=== PATIENT | female | born 1995 | race Caucasian/White ===

== ENCOUNTER → 2020-11-18 12:45 | Outpatient (CLI) | payer BC, SELFPAY ==
[2020-11-18 14:13] LABS: Hemoglobin A1C 5.4 % (4.0-6.0)
[2020-11-18 14:24] LABS: Basophils # 0.1 K/mm3 (0-0.2); Basophils % 0.8 % (0.1-2.0); Eosinophils # 0.4 K/mm3 (0.0-0.4); Eosinophils % 4.9 % (0.1-12.0); Hematocrit 39.2 % (37.0-47.0); Lymphocytes # 2.3 K/mm3 (0.7-4.5); Lymphocytes % 29.6 % (10-50); Mean Corpuscular HGB Conc 33.3 g/dL (31.8-35.4); Mean Corpuscular Hemoglobin 29.2 pg (27.0-31.2); Mean Corpuscular Volume 87.8 fl (81-99); Mean Platelet Volume 8.4 fl (7.4-10.4); Monocytes # 0.4 K/mm3 (0.1-1.0); Monocytes % 4.8 % (1.7-9.3); Neutrophils # 4.7 K/mm3 (1.8-7.8); Neutrophils % 59.9 % (37.0-80.0); Platelet Count 202 K/mm3 (142-424); Red Blood Count 4.46 M/mm3 (4.20-5.40); Red Cell Distribution Width 13.3 % (11.5-17.5); White Blood Count 7.9 K/mm3 (4.8-10.8)
[2020-11-18 15:13] LABS: Alanine Aminotransferase 14 U/L (12-78); Albumin Level 4.5 g/dl (3.5-5.0); Alkaline Phosphatase 62 U/L (38-126); Anion Gap 12.8 mEq/L (5-15); Aspartate Amino Transferase 24 U/L (14-36); Bilirubin,Total 0.4 mg/dl (0.2-1.3); Blood Urea Nitrogen 10 mg/dl (7-17); Calcium 9.4 mg/dl (8.4-10.2); Carbon Dioxide 29 mmol/L (22.0-30.0); Chloride 102 mmol/L (98-107); Chol/HDL Ratio 3.8 (1-3.5); Cholesterol 188 mg/dl (140-200); Estimated Glomerular Filt Rate 88 ml/min (>60); GFR (African American) 107 ML/MIN (>60); Globulin 2.3 g/dL (1.3-3.2); Glucose 87 mg/dl (74-100); HDL Cholesterol 50 mg/dl (40-60); Magnesium 1.9 mg/dl (1.6-2.3); Potassium 3.8 mmoL/L (3.5-5.1); Sodium 140 mmol/L (136-145); Total Protein,Serum 6.8 g/dl (6.3-8.2); Triglycerides 92 mg/dl (30-150); VLDL Cholesterol 18 mg/dL (0-40)
[2020-11-18 15:24] LABS: Direct LDL Cholesterol 118.07 mg/dL (100-129)
[2020-11-18 15:29] LABS: 25-OH Vitamin D, Total 26.3 ng/mL (30-100)
[2020-11-18 15:33] LABS: Triiodothryronine (T3) Uptake 28 % (23.5-40.5)
[2020-11-18 15:34] LABS: Free Thyroxine Index 2.9 ug/dL (5.93-13.13); T4 (Thyroxine) 10.4 ug/dl (5.53-11.0)
[2020-11-18 15:47] LABS: Thyroid Stimulating Hormone 3.85 uIU/mL (0.465-4.68)
[2020-11-18 16:02] LABS: Vitamin B12 274 pg/mL (239-931)
[2020-11-21 14:50] LABS: Deamidated Gliadin Abs, IgA 6 units (0-19); Deamidated Gliadin Abs, IgG 2 units (0-19); Tissue Transglutaminase IgA Ab <2 U/mL (0-3); Tissue Transglutaminase IgG Ab <2 U/mL (0-5)
[2020-11-23 05:09] LABS: F001-IgE Egg White 0.27 kU/L (Class 0/I); F002-IgE Milk <0.10 kU/L (Class 0); F003-IgE Codfish <0.10 kU/L (Class 0); F004-IgE Wheat <0.10 kU/L (Class 0); F013-IgE Peanut <0.10 kU/L (Class 0); F014-IgE Soybean <0.10 kU/L (Class 0); F024-IgE Shrimp <0.10 kU/L (Class 0); F256-IgE Walnut <0.10 kU/L (Class 0); F338-IgE Scallop <0.10 kU/L (Class 0)
[2020-11-23 13:03] LABS: F010-IgE Sesame Seed <0.10 kU/L (Class 0)
== END ==
PROVIDERS: PCP Internal Medicine Adolescent Medicine; Visit Provider Internal Medicine Adolescent Medicine
DX: R10.84 Generalized abdominal pain (principal); R53.81 Other malaise; R53.83 Other fatigue; R19.7 Diarrhea, unspecified
CPT/HCPCS: 36415; 80053; 80061; 82306; 82607; 83036; 83516; 83735; 84436; 84443; 84479; 85025; 86003; 86008

== ENCOUNTER → 2022-12-21 16:05 | Outpatient (CLI) | payer OTHER, BC, SELFPAY ==
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
== END ==
PROVIDERS: PCP Internal Medicine Adolescent Medicine; Visit Provider Physician Assistant
DX: M54.2 Cervicalgia (principal); M25.512 Pain in left shoulder
CPT/HCPCS: 72050; 73030

== ENCOUNTER 2023-03-25 05:07 | Observation (INO) | payer BC, SELFPAY ==
[2023-03-25] VITALS (11 sets, daily range): BP systolic 100–138; BP diastolic 54–84; PULSE 67–120; RESP 16–20; TEMP 37–37.4; O2SAT 96–100; BMI 35.9
--- NOTE | 2023-03-25 05:18 | HMH.EDGENADL ---
Discharge Plan Disposition Patient Disposition: Admitted Referrals Follow up/Referrals: Olivier Drew MD [Primary Care Provider] - See instructions Clinical Impressions Clinical Impression: of unknown anatomic location, Abdominal pain, RLQ Instructions Patient Instructions: DI for Acute Abdominal Pain Discharge ED Provider: Florentin Teresa General Adult HPI <Florentin Teresa MD - Last Filed: 03/25/23 07:13> General Chief complaint: Abdominal Pain Stated complaint: abdominal pain Time Seen by Provider: 03/25/23 05:09 History of Present Illness HPI narrative: Patient is a 27-year-old female with no pertinent past medical history presents emergency department for evaluation of abdominal pain. History is obtained by patient at bedside. Onset was acute, occurring approximately 6 PM. Patient had generalized abdominal discomfort which has migrated to her right lower quadrant. Patient has had a couple episodes of nonbloody diarrhea. No vomiting. There is associated nausea. Symptoms are moderate to severe in intensity causing her to present here for continued evaluation. Sick contact with who has had episodes of diarrhea as well. Denies dysuria. Last menstrual cycle approximately 1 month ago. No other acute complaints at this time. Related Data Allergies Allergy/AdvReac Type Severity Reaction Status Date / Time egg whites Allergy Uncoded 03/25/23 05:20 PFSH <Florentin Teresa MD - Last Filed: 03/25/23 07:13> PFS Disclaimer: The information contained in this section may have been updated after the patient was seen, as this information can be updated by other users. Social History (Updated 03/25/23 @ 07:13 by Florentin Teresa MD) Smoking Status: Never smoker alcohol intake: never current occupational status: employed Travel in the last 8 weeks: None <Florentin Teresa MD - Last Filed: 03/25/23 07:13> ROS Obtained: Yes Systems reviewed as appropriate & no additional complaints except as documented Physical Exam <Florentin Teresa MD - Last Filed: 03/25/23 07:13> General General appearance: alert and in no apparent distress Head Head exam: atraumatic and normocephalic Eye Eye exam: Present PERRL and EOMI ENT ENT exam: Present mucous membranes moist Neck Neck exam: Present normal inspection Chest Chest inspection: Present normal inspection and symmetric chest wall rise Respiratory Respiratory exam: Present normal lung sounds bilaterally; Absent respiratory distress Cardiovascular Cardiovascular exam: Present normal rhythm and tachycardia Abdominal Exam Abdominal exam: Present soft and tenderness (Right lower quadrant) Extremities Exam Extremities exam: Present normal inspection Neurological Exam Neurological exam: Present alert Psychiatric Psychiatric exam: Present normal affect Skin Skin exam: Present warm and dry Medical Decision Making <Florentin Teresa MD - Last Filed: 03/25/23 07:13> [place] Inquiry Pt receiving controlled substance: No Vital Signs: 03/25/23 05:08 03/25/23 05:14 03/25/23 05:31 Temperature 98.7 F Temperature Source Oral Pulse Rate 67 Pulse Rate [Radial] 120 H Respiratory Rate 16 Blood Pressure 134/78 129/58 L Blood Pressure [Right Arm] 134/78 Blood Pressure Mean 89 Blood Pressure Mean [Right Arm] 96 Blood Pressure Source [Right Arm] Automatic Cuff Blood Pressure Position [Right Arm] Sitting 02 Sat by Pulse Oximetry 96 97 96 Oxygen Delivery Method Room Air 03/25/23 06:01 03/25/23 07:30 Temperature Temperature Source Pulse Rate 90 102 H Pulse Rate [Radial] Respiratory Rate Blood Pressure 138/54 L 122/84 Blood Pressure [Right Arm] Blood Pressure Mean 95 Blood Pressure Mean [Right Arm] Blood Pressure Source [Right Arm] Blood Pressure Position [Right Arm] 02 Sat by Pulse Oximetry 98 98 Oxygen Delivery Method Lab Data Lab Results 03/25/23 05:13: Urine Color Yellow, Urine Ap
[2023-03-25 05:22] LABS: Microscopic, Urine URINE MICROSCOPIC (MICROSCOPIC)
[2023-03-25 05:24] LABS: Appearance,Urine CLEAR (Clear); Bilirubin,Urine Negative (Negative); Blood, Urine Negative (Negative); Color,Urine YELLOW (Yellow); Glucose,Urine (UA) Negative (Negative); Ketones,Urine Negative (Negative); Leukocyte Esterase,Urine Negative (Negative); Nitrate,Urine Negative (Negative); PH,Urine 6.5 (5.0-8.5); Protein,Urine TRACE (Negative); Specific Gravity, Urine >= 1.030 (1.005-1.030); Urobilinogen,Urine 0.2 EU/dl (0.2)
[2023-03-25 05:34] LABS: Basophils % 0.3 % (0.1-2.0); Eosinophils # 0.1 K/mm3 (0.0-0.4); Eosinophils % 0.5 % (0.1-12.0); Hematocrit 39.6 % (37.0-47.0); Hemoglobin 12.9 g/dL (12.2-16.2); Lymphocytes # 1.3 K/mm3 (0.7-4.5); Lymphocytes % 9.6 % (10-50); Mean Corpuscular HGB Conc 32.7 g/dL (31.8-35.4); Mean Corpuscular Hemoglobin 27.6 pg (27.0-31.2); Mean Corpuscular Volume 84.5 fl (81-99); Mean Platelet Volume 8.7 fl (7.4-10.4); Monocytes # 0.6 K/mm3 (0.1-1.0); Monocytes % 4.2 % (1.7-9.3); Neutrophils # 11.3 K/mm3 (1.8-7.8); Neutrophils % 85.3 % (37.0-80.0); Platelet Count 191 K/mm3 (142-424); Red Blood Count 4.68 M/mm3 (4.20-5.40); Red Cell Distribution Width 14.3 % (11.5-17.5); White Blood Count 13.2 K/mm3 (4.8-10.8)
[2023-03-25 05:38] LABS: MANUAL DIFFERENTIAL MANUAL DIFFERENTIAL (MANUAL DIFF)
[2023-03-25 05:40] LABS: Chloride 105 mmol/L (98-107); Sodium 141 mmol/L (136-145)
[2023-03-25 05:41] LABS: Bacteria,Urine 2+ /lpf; Mucus,Urine 2+ /lpf
[2023-03-25 05:42] LABS: Blood Urea Nitrogen 11 mg/dl (7-17); Creatinine Clearance Estimated 160 mL/min (50-200); Estimated Glomerular Filt Rate 101 ml/min (>60); GFR (African American) 122 ML/MIN (>60)
[2023-03-25 05:43] LABS: Alanine Aminotransferase 26 U/L (12-78); Albumin Level 4.6 g/dl (3.5-5.0); Albumin/Globulin Ratio 1.6 (1.1-1.8); Alkaline Phosphatase 67 U/L (38-126); Aspartate Amino Transferase 27 U/L (14-36); Bilirubin,Total 0.5 mg/dl (0.2-1.3); Calcium 9.2 mg/dl (8.4-10.2); Carbon Dioxide 29 mmol/L (22.0-30.0); Globulin 2.8 g/dL (1.3-3.2); Glucose 126 mg/dl (74-100); Lipase 60 U/L (23-300); Total Protein,Serum 7.4 g/dl (6.3-8.2)
[2023-03-25 05:44] LABS: HCG Qualitative, Serum Positive (Negative)
--- NOTE | 2023-03-25 05:47 | US_ITS ---
PROCEDURE INFORMATION: Exam: US , Transvaginal Exam date and time: 03/25/2023 6:26 AM Age: 27 years old Clinical indication: Lmp or gestational age (in weeks): 5 weeks 6 days; Other: Right pelvic pain; ; Additional info: Rlq pain, pos preg LABS AND CLINICAL REPORTS: Last menstrual period start date: 02/12/2023 Gestational age (Established): 5 w 6 d Estimated due date (Established): 11/19/2023 TECHNIQUE: Imaging protocol: Real-time transvaginal obstetrical ultrasound of the maternal pelvis with image documentation. Transvaginal imaging was used for better evaluation of the fetus, adnexa, and/or cervix. COMPARISON: No relevant prior studies available. FINDINGS: Gestation: Fluid-filled sac in the endometrium. . Soft tissue density within the sac. No pole. No yolk sac. Consequently this is not a confirmed intrauterine . BIOMETRY: Gestational age (AUA): 5 w 3 d Estimated due date (AUA): 11/22/2023 Mean sac diameter: 0.8 cm. MATERNAL: Right ovary/adnexa: Right ovary measures 2.7 cm x 3.3 cm x 2.5 cm. Right ovarian volume is 12 mL. Cystic structure in the right adnexal region. Ectopic cannot be excluded. Left ovary/adnexa: Left ovary measures 2.5 cm x 2 cm x 1.4 cm. Left ovarian volume is 3.5 mL. Vasculature: Doppler flow noted in both ovaries IMPRESSION: 1. Fluid-filled sac in the endometrium. . Soft tissue density within the sac. No pole. No yolk sac. Consequently this is not a confirmed intrauterine . Recommend short term follow-up to a re-evaluate viability 2. Cystic structure in the right adnexal region. Ectopic cannot be excluded.
[2023-03-25 05:49] LABS: C-Reactive Protein 17.5 mg/L (0-4)
--- NOTE | 2023-03-25 05:50 | PC.NURSE ---
notified xray of transvaginal ultrasound order
[2023-03-25 05:59] LABS: Lymphocytes % 13 % (10-50); Monocytes % 4 % (2-9); Neutrophils % 83 % (42-76); Platelet Estimate Slight Decrease; Total Cells Counted 100
[2023-03-25 06:00] LABS: RBC Morphology Normal
[2023-03-25 06:18] LABS: HCG,Quantitative 4574 mIU/ml (0-5.42)
--- NOTE | 2023-03-25 06:36 | PC.NURSE ---
patient gone to Ultrasound at this time.
--- NOTE | 2023-03-25 07:25 | PC.NURSE ---
dr mica montalvo
--- NOTE | 2023-03-25 07:26 | PC.NURSE ---
Dr Miller speaking with Dr Ayala
--- NOTE | 2023-03-25 07:36 | PC.NURSE ---
pts at bedside. pt provided bottle of water. informed pt of POC and need for urine sample. pt states she is unable to void at this time.
--- NOTE | 2023-03-25 07:40 | PC.NURSE ---
Dr Miller is speaking to Dr Ayala at this time.
--- NOTE | 2023-03-25 07:44 | PC.NURSE ---
House aware of admission.
--- NOTE | 2023-03-25 07:48 | PC.NURSE ---
pt is going to room 279 per house.
--- NOTE | 2023-03-25 09:24 | PC.NURSE ---
Dr. Ayala at bedside at this time.
--- NOTE | 2023-03-25 09:42 | EXP.HP ---
History of Present Illness *Admission Date: 03/25/23 *Reason for visit:: , right lower quadrant pain *History of present illness: Patient is a 27-year-old 2 para 1 female with no pertinent past medical history presents emergency department for evaluation of abdominal pain. History is obtained by patient at bedside. Onset was acute, occurring approximately 6 PM. Patient had generalized abdominal discomfort which has migrated to her right lower quadrant. Patient has had a couple episodes of nonbloody diarrhea. No vomiting. There is associated nausea. Symptoms are moderate to severe in intensity causing her to present here for continued evaluation. Sick contact with who has had episodes of diarrhea as well. Denies dysuria. Last menstrual cycle approximately 1 month ago. She says she did do a test last week and it was positive. test in the ER today is positive. No other acute complaints at this time. Ultrasound done today in the ER shows an intrauterine and a 3 cm cyst on the right ovary. No fluid in the cul-de-sac. [facility] Disclaimer: The information contained in this section may have been updated after the patient was seen, as this information can be updated by other users. Social History Smoking Status: Never smoker alcohol intake: never current occupational status: employed Travel in the last 8 weeks: None Review of Systems Review of Systems Review of systems:: pertinent systems reviewed and negative unless documented below Meds Home Medications and Allergies Home Medications Medication Instructions Recorded Confirmed Type No Known Home Medications 03/25/23 03/25/23 History New Prescriptions to Start Prescriptions: Allergies Allergy/AdvReac Type Severity Reaction Status Date / Time egg whites Allergy Uncoded 03/25/23 05:20 Exam Data for Last 24 hours Vital signs and Labs for Last 24 Hours: Temp Pulse Resp BP Pulse Ox O2 Del Method 99.3 F 91 H 18 105/59 L 100 Room Air 03/25/23 08:50 03/25/23 08:50 03/25/23 08:50 03/25/23 08:50 03/25/23 08:50 03/25/23 09:07 Laboratory Results - last 24 hr 03/25/23 05:13: Urine Color Yellow, Urine Appearance Clear, Urine pH 6.5, Ur Specific [place] >= 1.030, Urine Protein Trace, Urine Glucose (UA) Negative, Urine Ketones Negative, Urine Blood Negative, Urine Nitrate Negative, Urine Bilirubin Negative, Urine Urobilinogen 0.2, Ur Leukocyte Esterase Negative, Urine RBC None, Urine WBC 5-10, Ur Squamous Epith Cells 10-20, Urine Bacteria 2+, Urine Mucus 2+ 03/25/23 05:27: WBC 13.2 H, RBC 4.68, Hgb 12.9, Hct 39.6, MCV 84.5, MCH 27.6, MCHC 32.7, RDW 14.3, Plt Count 191, MPV 8.7, Neut % (Auto) 85.3 H, Lymph % (Auto) 9.6 L, [place] % (Auto) 4.2, Eos % (Auto) 0.5, Baso % (Auto) 0.3, Neut # (Auto) 11.3 H, Lymph # (Auto) 1.3, [place] # (Auto) 0.6, Eos # (Auto) 0.1, Baso # (Auto) 0.0, Total Counted 100, Neutrophils % (Manual) 83 H, Lymphocytes % (Manual) 13, Monocytes % (Manual) 4, Platelet Estimate Slight decrease, RBC Morphology Normal, Sodium 141, Potassium 4.0, Chloride 105, Carbon Dioxide 29, Anion Gap 11.0, BUN 11, Creatinine 0.70, Estimated Creat Clear 160, Estimated GFR 101, Est GFR ( Amer) 122, Glucose 126 H, Calcium 9.2, Total Bilirubin 0.5, AST 27, ALT 26, Alkaline Phosphatase 67, C-Reactive Protein 17.5 H, Total Protein 7.4, Albumin 4.6, Globulin 2.8, Albumin/Globulin Ratio 1.6, Lipase 60, Serum HCG, Qual Positive, HCG, Quant [id number] H I & O for Last 24 hours: Intake & Output 03/22/23 03/23/23 03/24/23 03/25/23 11:59 11:59 11:59 11:59 Weight 184 lb Constitutional Constitutional: no acute distress *Routine HEENT Exam Head: Present normocephalic Eye: Present EOMI and PERRL ENT: Present mucous membranes moist *Routine Neck Exam Neck: Present supple; Absent lymphadenopathy *Routine Respiratory Exam Respiratory: Present CTA bilateral
--- NOTE | 2023-03-25 09:50 | PC.NURSE ---
Called pt's insurance for pre-certification on MRI ABD wo. Due to being Monday no employment program representative available to begin authorization without online chat. Radiology notified of this. [facility] aware. Dr Miller & Dr. Ayala aware.
--- NOTE | 2023-03-25 10:17 | HMH.ITSTN ---
TRIED DOING MRI ON MONDAY , UNABLE TO GET A HOLD OF CARE MANGAEMENT OR INSURANCE TO GET MRI APPROVED. ORDERING DOCTOR AND DR. JACOB AWARE OF WAITING UNTIL MONDAY TO DO SCAN .
--- NOTE | 2023-03-25 15:30 | PC.NURSE ---
Reassessment has been completed at this time. Lungs cta and bowel sounds active x4. Voiding has been adequate. Reports pain at this time- 10/28 RLQ denies need for any medication. Iv infusing in left a/c. No edema noted. Denies vaginal bleeding. No vomiting or diarrhea. Call light within reach.
[2023-03-25 16:08] LABS: Basophils # 0.1 K/mm3 (0-0.2); Basophils % 0.5 % (0.1-2.0); Eosinophils # 0.1 K/mm3 (0.0-0.4); Hemoglobin 11.8 g/dL (12.2-16.2); Lymphocytes # 2.2 K/mm3 (0.7-4.5); Lymphocytes % 20.9 % (10-50); Mean Corpuscular HGB Conc 32.9 g/dL (31.8-35.4); Mean Corpuscular Hemoglobin 27.9 pg (27.0-31.2); Mean Corpuscular Volume 84.9 fl (81-99); Mean Platelet Volume 8.4 fl (7.4-10.4); Monocytes # 0.7 K/mm3 (0.1-1.0); Monocytes % 6.4 % (1.7-9.3); Neutrophils # 7.6 K/mm3 (1.8-7.8); Neutrophils % 71.3 % (37.0-80.0); Platelet Count 185 K/mm3 (142-424); Red Blood Count 4.24 M/mm3 (4.20-5.40); Red Cell Distribution Width 14.2 % (11.5-17.5); White Blood Count 10.6 K/mm3 (4.8-10.8)
--- NOTE | 2023-03-25 17:00 | PC.NURSE ---
dr. nino inquired by phone. no new orders.
--- NOTE | 2023-03-25 18:56 | PC.NURSE ---
report to anabella cortes rn
--- NOTE | 2023-03-25 21:04 | PC.NURSE ---
dr nino called unit at this time, update given, no new orders
[2023-03-26 05:30] VITALS: BP 110/64; PULSE 74; RESP 17; TEMP 36.9; O2SAT 99
--- NOTE | 2023-03-26 06:55 | EXP.ACUTE.PN ---
Subjective *Date: 03/26/23 *Time: 06:55 Interval history: She is feeling better this morning. She says that she has a slight amount of pain but not like it was yesterday. She has not been taking any pain medicine since yesterday. She denies any nausea or vomiting. She is afebrile. Medical Exam Vital signs and Labs for Last 24 Hours: Vital Signs Temp Pulse Pulse Resp BP BP Pulse Ox 03/26/23 06:00 03/26/23 05:00 03/26/23 05:30 98.5 F 74 17 110/64 99 03/26/23 01:47 03/25/23 21:05 03/25/23 20:08 97 03/25/23 20:05 99.1 F 87 18 110/70 97 03/25/23 13:00 03/25/23 18:23 03/25/23 17:17 03/25/23 15:34 98.6 F 107 H 20 100/54 L 96 03/25/23 15:32 03/25/23 14:00 03/25/23 12:20 03/25/23 11:35 03/25/23 10:00 03/25/23 08:50 99.3 F 91 H 18 105/59 L 100 03/25/23 08:45 100 03/25/23 09:07 03/25/23 08:30 98.7 F 99 H 18 125/82 03/25/23 07:30 102 H 122/84 98 O2 Del Method 03/26/23 06:00 Room Air 03/26/23 05:00 Room Air 03/26/23 05:30 Room Air 03/26/23 01:47 Room Air 03/25/23 21:05 Room Air 03/25/23 20:08 Room Air 03/25/23 20:05 Room Air 03/25/23 13:00 Room Air 03/25/23 18:23 Room Air 03/25/23 17:17 Room Air 03/25/23 15:34 Room Air 03/25/23 15:32 Room Air 03/25/23 14:00 Room Air 03/25/23 12:20 Room Air 03/25/23 11:35 Room Air 03/25/23 10:00 Room Air 03/25/23 08:50 Room Air 03/25/23 08:45 Room Air 03/25/23 09:07 Room Air 03/25/23 08:30 Room Air 03/25/23 07:30 Intake and Output 03/25/23 03/26/23 03/26/23 19:59 03:59 11:59 Output Total 0 / 0 Balance 0 / 0 Output: Output, Urine Amount 0 / 0 Other: Number of Unmeasured Voids 2 Laboratory Results - last 24 hr 03/25/23 15:50: WBC 10.6, RBC 4.24, Hgb 11.8 L, Hct 36.0 L, MCV 84.9, MCH 27.9, MCHC 32.9, RDW 14.2, Plt Count 185, MPV 8.4, Neut % (Auto) 71.3, Lymph % (Auto) 20.9, [place] % (Auto) 6.4, Eos % (Auto) 1.0, Baso % (Auto) 0.5, Neut # (Auto) 7.6, Lymph # (Auto) 2.2, [place] # (Auto) 0.7, Eos # (Auto) 0.1, Baso # (Auto) 0.1 I & O for Labs for Last 24 Hours: Intake & Output 03/23/23 03/24/23 03/25/23 03/26/23 11:59 11:59 11:59 11:59 Output Total 0 / 0 Balance 0 / 0 Weight 184 lb Microbiology Reports for the Last 24 Hours: Microbiology 03/25/23 05:13 Urine,Clean Catch Urine Culture - Preliminary NO GROWTH AFTER 24 HOURS Head: Present atraumatic ENT: Present normal exam Neck: Present normal inspection Respiratory: Present normal respiratory effort; Absent accessory muscle use Assessment and Plan *Assessment and plan (1) Abdominal pain, RLQ: Status: Acute Category: Medical Code(s): R10.31 - Right lower quadrant pain (2) of unknown anatomic location: Status: Acute Category: Medical Code(s): O36.80X0 - with inconclusive viability, not applicable or unspecified Plan We will plan to keep her on IV antibiotics for another day. She seems to be doing better. We will plan an MRI tomorrow. We will want to look at the appendix tomorrow. They will also look at the cyst on the right side. We may consider another ultrasound tomorrow as well. We will get a repeat beta-hCG tomorrow as well.
[2023-03-26 08:10] VITALS: BP 98/43; PULSE 77; RESP 18; TEMP 37.1; O2SAT 100
[2023-03-26 10:07] LABS: HCG,Quantitative 6167 mIU/ml (0-5.42)
[2023-03-26 15:00] VITALS: BP 108/63; PULSE 79; RESP 18; TEMP 36.8; O2SAT 99
--- NOTE | 2023-03-26 15:14 | PC.NURSE ---
reassessment completed at this time. no changed noted. Denies abdominal pain today, abd is tender in RLQ. Complaints of a headache (3/10) but denies need for medication. bowels active x4 and lungs cta. no edema noted. iv infusing without difficulty. no needs. at bedside
--- NOTE | 2023-03-26 19:07 | PC.NURSE ---
REPORT TO Clari BANGURA RN
[2023-03-26 20:50] VITALS: BP 110/67; PULSE 78; RESP 16; TEMP 37.3; O2SAT 97
[2023-03-27 04:28] VITALS: PULSE 67; RESP 18; TEMP 37.1; O2SAT 97
[2023-03-27 07:19] LABS: Basophils % 0.4 % (0.1-2.0); Eosinophils # 0.1 K/mm3 (0.0-0.4); Eosinophils % 2.3 % (0.1-12.0); Hemoglobin 12.1 g/dL (12.2-16.2); Lymphocytes # 2.5 K/mm3 (0.7-4.5); Lymphocytes % 40.3 % (10-50); Mean Corpuscular HGB Conc 32.7 g/dL (31.8-35.4); Mean Corpuscular Volume 85.7 fl (81-99); Mean Platelet Volume 9.2 fl (7.4-10.4); Monocytes # 0.3 K/mm3 (0.1-1.0); Neutrophils # 3.2 K/mm3 (1.8-7.8); Platelet Count 170 K/mm3 (142-424); Red Blood Count 4.32 M/mm3 (4.20-5.40); Red Cell Distribution Width 14.1 % (11.5-17.5); White Blood Count 6.1 K/mm3 (4.8-10.8)
[2023-03-27 07:47] LABS: HCG,Quantitative 7885 mIU/ml (0-5.42)
--- NOTE | 2023-03-27 07:55 | PC.NURSE ---
Pt awaiting MRI this morning. Denies any pain, even when abdomen is palpated. No tenderness. Does however report some nausea. Reports diarrhea like bm last night. (+)BS all 4 quads. Lungs CTA throughout. No edema noted anywhere.
[2023-03-27 07:59] VITALS: BP 110/44; PULSE 69; RESP 18; TEMP 36.9; O2SAT 100
[2023-03-27 08:00] VITALS: O2SAT 100
--- NOTE | 2023-03-27 08:05 | PC.NURSE ---
Phone call received from MRI stating that they will not be able to do MRI until later this morning. V/U.
--- NOTE | 2023-03-27 08:20 | PC.NURSE ---
here to see pt.
--- NOTE | 2023-03-27 08:34 | US_ITS ---
PROCEDURE: US OB TRANSVAGINAL CLINICAL INDICATION: abdominal pain COMPARISON: US US OB TRANSVAGINAL from 03/25/2023 FINDINGS: Transvaginal sonographic images of the pelvis were obtained. From her last menstrual period she is 6weeks 1day. Two intrauterine gestational sacs are present with a pole with a crown-rump length of 0.26cm correlating to gestational age of 5weeks 5days. The inferior sac appears to contain the fetus. There is a hint of a yolk sac in the lower sac. The upper sac is smaller and there is no evidence of a fetus in the sac. heart tones are not seen with this ultrasound today. The right ovary is seen and appears normal. The right ovary measures 2.4 cm x 3.6 cm x 2.1 cm Superior to the right ovary is a cystic area that has through transmission. It measures 1.4 cm x 1.8 cm x 0.7 cm. This has diminished in size by about half since a previous exam 48 hours ago. The left ovary is seen and appears normal. The left ovary measures 1.2 cm x 2.8 cm x 1.3 cm There is no fluid in the cul-de-sac. IMPRESSION: 1. Two gestational sacs are seen within the uterine cavity. The upper sac is smaller in seems to be collapsing. The lower sac has what appears to be a fetus but there is no heart rate activity yet. I suspect it is too early. Suggest repeat ultrasound in 1 week. 2. Both ovaries are seen and appear normal. The previously described 3 cm cyst on the right ovary has now diminished in size by about half. 3. There is no fluid in the cul-de-sac. Dictated by: Henrique Ayala MD 03/27/2023 16:48 Henrique Ayala MD in OV 03/27/2023 16:48
--- NOTE | 2023-03-27 09:59 | PC.NURSE ---
Sitting in bed watching tv at this time. Denies any needs. Denies pain.
--- NOTE | 2023-03-27 10:15 | PC.NURSE ---
Pt taken to Radiology via for ultrasound.
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
--- NOTE | 2023-03-27 11:35 | EXP.DC.SUM ---
General Admission date:: 03/25/23 Discharge date: 03/27/23 HPI HPI HPI: Patient is a 27-year-old 2 para 1 female with no pertinent past medical history presents emergency department for evaluation of abdominal pain. History is obtained by patient at bedside. Onset was acute, occurring approximately 6 PM. Patient had generalized abdominal discomfort which has migrated to her right lower quadrant. Patient has had a couple episodes of nonbloody diarrhea. No vomiting. There is associated nausea. Symptoms are moderate to severe in intensity causing her to present here for continued evaluation. Sick contact with who has had episodes of diarrhea as well. Denies dysuria. Last menstrual cycle approximately 1 month ago. She says she did do a test last week and it was positive. test in the ER today is positive. No other acute complaints at this time. Ultrasound done today in the ER shows an intrauterine and a 3 cm cyst on the right ovary. No fluid in the cul-de-sac. Hospital Course Hospital Course Hospital Course: She was admitted and started on IV antibiotics. Subsequently her white count went from 13 down to 10. She has had no fever throughout her hospitalization. Initial ultrasound showed a gestational sac but no fetus. There was a 3 cm cyst on the right side. Ultrasound today showed a gestational sac with 2 sacs but only 1 fetus could be seen. There were no heart tones today. It still too early we believe. The 3 cm cyst on the right ovary has mostly resolved and is now about half that size. The cyst itself seems to be more superior to the ovary and not within the ovary. She denies any further episodes of pain. Is not clear whether the cyst on the right ovary was causing her discomfort or she had an early appendicitis given her slightly elevated white count and pain over McBurney's point. She has received IV Ancef every 8 for the last 48 hours. We will send her home with Keflex 500 twice daily for the next 5 days. We will repeat another ultrasound next week. Her beta-hCG's have risen from 4500 to almost 8000. Exam Data for Last 24 hours Vital signs and Labs for Last 24 Hours: Temp Pulse Resp BP Pulse Ox O2 Del Method 98.5 F 69 18 110/44 L 100 Room Air 03/27/23 07:59 03/27/23 07:59 03/27/23 07:59 03/27/23 07:59 03/27/23 08:00 03/27/23 08:38 Laboratory Results - last 24 hr 03/27/23 06:57: WBC 6.1 D, RBC 4.32, Hgb 12.1 L, Hct 37.0, MCV 85.7, MCH 28.0, MCHC 32.7, RDW 14.1, Plt Count 170, MPV 9.2, Neut % (Auto) 52.0, Lymph % (Auto) 40.3, [place] % (Auto) 5.0, Eos % (Auto) 2.3, Baso % (Auto) 0.4, Neut # (Auto) 3.2, Lymph # (Auto) 2.5, [place] # (Auto) 0.3, Eos # (Auto) 0.1, Baso # (Auto) 0.0, HCG, Quant 7885 H I & O for Last 24 hours: Intake & Output 03/24/23 03/25/23 03/26/23 03/27/23 11:59 11:59 11:59 11:59 Output Total 0 / 0 0 / 0 Balance 0 / 0 0 / 0 Weight 184 lb Microbiology Reports for the Last 24 Hours: Microbiology 03/25/23 05:13 Urine,Clean Catch Urine Culture - Final NO GROWTH AFTER 48 HOURS Constitutional Constitutional: no acute distress *Routine HEENT Exam Head: Present normocephalic *Routine Respiratory Exam Respiratory: Present normal respiratory effort; Absent accessory muscle use *Routine Abdominal Exam Abdominal: Present soft; Absent tenderness or rebound Results Data Completed and Pending Labs on day of discharge: Labs from last 24 hours 03/27/23 06:57 WBC 6.1 D RBC 4.32 Hgb 12.1 L Hct 37.0 MCV 85.7 MCH 28.0 MCHC 32.7 RDW 14.1 Plt Count 170 MPV 9.2 Neut % (Auto) 52.0 Lymph % (Auto) 40.3 [place] % (Auto) 5.0 Eos % (Auto) 2.3 Baso % (Auto) 0.4 Neut # (Auto) 3.2 Lymph # (Auto) 2.5 [place] # (Auto) 0.3 Eos # (Auto) 0.1 Baso # (Auto) 0.0 HCG, Quant 7885 H DS: Diagnosis Discharge Diagnosis (1) Abdominal pain, RLQ: Status: Acute
--- NOTE | 2023-03-27 12:06 | PC.NURSE ---
IV discontinued at this time with catheter intact. 2x2 gauze and coban applied to site. Tolerated well.
--- NOTE | 2023-03-27 13:20 | PC.NURSE ---
Discharged home ambulatory. Pt will f/u Monday for another ultrasound. Verbalized understanding of discharge instructions.
[2023-03-28 08:42] LABS: Progesterone 15.7 ng/mL (.)
== END 2023-03-27 13:23 | disposition home or self-care (01) ==
LOC: ER 07:56 → OB 09:25
PROVIDERS: Admitting Provider Nurse Practitioner Obstetrics & Gynecology; Emergency Provider Emergency Medicine; PCP Internal Medicine Adolescent Medicine; Visit Provider Nurse Practitioner Obstetrics & Gynecology
DX: R10.31 Right lower quadrant pain (principal); O36.80X0 Pregnancy with inconclusive fetal viability, not applicable or unspecified
CPT/HCPCS: 36415; 76817; 80053; 81001; 83690; 84144; 84702; 84703; 85007; 85025; 86140; 87086; G0378; J0131; J2405

== ENCOUNTER → 2023-04-05 15:50 | Outpatient (CLI) | payer BC, SELFPAY ==
--- NOTE | 2023-04-05 15:50 | US_ITS ---
PROCEDURE: US OB <= 14 WEEKS FETUS CLINICAL INDICATION: for dates COMPARISON: US US OB TRANSVAGINAL from 03/27/2023 FINDINGS: Transvaginal sonographic images of the pelvis were obtained. From her last menstrual period date she is 7weeks 3days. An intrauterine gestational sac is present with a pole with a crown-rump length of 0.66cm correlating to gestational age of 6weeks 4days. heart tones are present with an FHR of 127bpm. Yolk sac is noted. The yolk sac measures 4.2mm. The right ovary is seen and appears normal. It measures 2.8 cm x 2.9 cm x 2.5 cm The previously described cystic area superior to the right ovary is no longer visualized. There is a 1.4 cm corpus luteum in the right ovary. The left ovary is seen and appears normal. It measures 1.9 cm x 1.4 cm x 1.3 cm There is no fluid in the cul-de-sac. IMPRESSION: 1. Viable fetus within the uterine cavity measuring 6 weeks and 4 days. 2. Her due date will be November 25, 2023. 3. The previously described secondary sac has now resolved. 4. The cystic area superior to the right ovary is no longer visualized. Dictated by: Henrique Ayala MD 04/06/2023 09:23 Henrique Ayala MD in [facility] 04/06/2023 09:23
== END ==
PROVIDERS: PCP Internal Medicine Adolescent Medicine; Visit Provider Nurse Practitioner Obstetrics & Gynecology
DX: Z34.91 Encounter for supervision of normal pregnancy, unspecified, first trimester (principal); Z3A.01 Less than 8 weeks gestation of pregnancy
CPT/HCPCS: 76801